=== PATIENT | male | born 1970 ===

== ENCOUNTER 2021-11-23 11:05 | Emergency (ER) | payer OTHER ==
[~2021-11-23] VITALS: Ht 175.3 cm; Wt 81.8 kg
[2021-11-23] MEDS ORDERED: VOLTAREN 75 DR75 MG PO (11:52)
[2021-11-23] MEDS ORDERED: ZANAFLEX CAPSULE4 MG PO (11:53)
[2021-11-23 12:36] VITALS: BP 163/92; PULSE 91; TEMP 98.1
== END 2021-11-23 12:36 | disposition home or self-care (01) ==
LOC: COL.ER 11:05
DX: S43.402A Unspecified sprain of left shoulder joint, initial encounter (principal); F17.200 Nicotine dependence, unspecified, uncomplicated; X58.XXXA Exposure to other specified factors, initial encounter